=== PATIENT | male | born 1955 | race Two or more races ===

== ENCOUNTER → 2024-07-16 | Outpatient (CLI) | payer BC, SELFPAY ==
--- NOTE | 2024-07-16 17:00 | XR_ITS ---
Examination: Bilateral hips, AP pelvis, 5 views Technique: AP, lateral views both hips, AP pelvis, 5 views Exam date and time: July 16, 2024 6:06 PM INDICATIONS: Bilateral hip pain 3.5 months no trauma FINDINGS: Mild bilateral hip osteoarthritis. No right or left hip fracture or dislocation. Bones of the pelvis are intact. IMPRESSION: Mild bilateral hip osteoarthritis
--- NOTE | 2024-07-16 17:00 | XR_ITS ---
Examination: Lumbar spine 3 views TECHNIQUE: AP lateral, lateral and lower lumbar spine 3 views Standing time: July 16, 2024 6:12 PM INDICATIONS: Low back pain 3.5 months radiating down the left leg. FINDINGS: Lumbar levoscoliosis is 12 degrees. No lumbar fracture. Moderate to advanced disc narrowing L4-L5, L5-S1 Moderate lumbar spondylosis IMPRESSION: Moderate to advanced degenerative disc disease L4-L5, L5-S1
== END | disposition home or self-care (01) ==
PROVIDERS: PCP Internal Medicine; Referring Provider Orthopaedic Surgery; Visit Provider Orthopaedic Surgery
DX: M51.369 Other intervertebral disc degeneration, lumbar region without mention of lumbar back pain or lower extremity pain (principal); M51.379 Other intervertebral disc degeneration, lumbosacral region without mention of lumbar back pain or lower extremity pain
CPT/HCPCS: 72100; 73523

== ENCOUNTER → 2024-11-17 | Outpatient (CLI) | payer BC, SELFPAY ==
--- NOTE | 2024-11-17 14:49 | XR_ITS ---
Examination: Lumbar spine 3 views Technique one AP lateral coned lateral lower lumbar spine 3 views Date and time: November 17, 2024 1559 hours Comparison July 16, 2024 INDICATIONS: Status post lumbar fusion September 24, 2024 FINDINGS: Status post transpedicular lumbar fusion L2-S1 with anatomic alignment No lumbar fracture No cortical bone destruction Mild lumbar spondylosis IMPRESSION: Status post transpedicular lumbar fusion L2-S1 with anatomic alignment
== END | disposition home or self-care (01) ==
LOC: CDIM 14:43
PROVIDERS: PCP Internal Medicine; Referring Provider Orthopaedic Surgery; Visit Provider Orthopaedic Surgery
DX: M43.27 Fusion of spine, lumbosacral region (principal); Z98.890 Other specified postprocedural states
CPT/HCPCS: 72100

== ENCOUNTER → 2025-03-18 | Outpatient (CLI) | payer MEDICARE, BC, SELFPAY ==
--- NOTE | 2025-03-18 14:49 | XR_ITS ---
EXAMINATION: Lumbar spine 3 views TECHNIQUE: AP lateral, lateral lower lumbar spine 3 views Date and time: March 18, 2025, 1514 hours, comparison November 17, 2024 INDICATIONS: Postop lumbar spine surgery September 24, 2024. FINDINGS: Anatomic alignment transpedicular lumbar fusion L2-S1 Intact vertebral bodies No cortical bone destruction IMPRESSION: Anatomic alignment post lumbar fusion L2-S1
== END | disposition home or self-care (01) ==
LOC: CDIM 14:44
PROVIDERS: PCP Internal Medicine; Referring Provider Orthopaedic Surgery; Visit Provider Orthopaedic Surgery
DX: M43.27 Fusion of spine, lumbosacral region (principal)
CPT/HCPCS: 72100